=== PATIENT | male | born 1950 | race Caucasian/White ===

== ENCOUNTER → 2016-12-23 | Outpatient (CLI) | payer MEDICARE ==
[~2016-12-23] VITALS: Ht 182.9 cm; Wt 83.5 kg
[~2016-12-23] MED LIST: ALBUTEROL2.5 MG/3 M INH; ALDACTONE 25MG25 MG PO; ASPIR-LOW81 MG PO; ASPIRIN CHEWABL81 MG PO; ATIVAN0.5 MG PO; ATIVAN1 MG PO; CORDARONE 200M200 MG PO; COREG 3.125M3.125 MG PO; COUMADIN 1MG TAB1 MG PO; DEMADEX 20 MG T20 MG PO; EFFEXOR XR 150150 MG PO; ELIQUIS 5 MG TAB5 MG PO; FEOSOL325 MG PO; IMDUR ER TAB 6060 MG PO; K-DUR TAB 10 M10 MEQ PO; LASIX40 MG PO; LEVAQUIN500 MG PO; LIPITOR TAB 2020 MG PO; LIPITOR80 MG PO; LISINOPRIL2.5 MG PO; LOPRESSOR 50 MG50 MG PO; MEDI-PATCH WIT1 EACH TD; NITROSTAT0.4 MG PO; NITROSTAT0.4 MG SL; NORCO 5-325 TA1 EACH PO; PLAVIX 75 MG TA75 MG PO; PROAIR HFA8.5 GM INH; PROSCAR5 MG PO; PROTONIX40 MG PO; RANEXA500 MG PO; SENOKOT-S TABL1 EACH PO; SYMBICORT 160-1 INHA INH; SYMBICORT 16010.2 GM INH; TRAZODONE HCL50 MG PO; TYLENOL W/CODEIN1 E1 PO; VENTOLIN/PROVE0.5 ML INH; ZYLOPRIM 100 M100 MG PO
[2016-12-23 07:59] LABS: HEMOGLOBIN 10.9 gm/dl (14.0-17.5); RED BLOOD COUNT 3.91 M/UL (4.20-5.50); WHITE BLOOD COUNT 6.6 K/UL (4.5-11.0)
== END ==
LOC: OPSV2 07:04 → EDSTATUS 07:30
PROVIDERS: Internal Medicine Cardiovascular Disease
DX: I48.0 Paroxysmal atrial fibrillation (principal); I48.92 Unspecified atrial flutter; I13.0 Hypertensive heart and chronic kidney disease with heart failure and stage 1 through stage 4 chronic kidney disease, or unspecified chronic kidney disease; I50.22 Chronic systolic (congestive) heart failure; N18.9 Chronic kidney disease, unspecified; I25.5 Ischemic cardiomyopathy; I45.9 Conduction disorder, unspecified; F17.210 Nicotine dependence, cigarettes, uncomplicated; I25.119 Atherosclerotic heart disease of native coronary artery with unspecified angina pectoris; Z95.1 Presence of aortocoronary bypass graft; I25.2 Old myocardial infarction; Z79.899 Other long term (current) drug therapy; Z95.2 Presence of prosthetic heart valve; Z95.810 Presence of automatic (implantable) cardiac defibrillator; Z98.61 Coronary angioplasty status; I95.9 Hypotension, unspecified; I34.0 Nonrheumatic mitral (valve) insufficiency; E78.2 Mixed hyperlipidemia; I73.9 Peripheral vascular disease, unspecified; G47.30 Sleep apnea, unspecified; Z86.73 Personal history of transient ischemic attack (TIA), and cerebral infarction without residual deficits; I99.9 Unspecified disorder of circulatory system; Z79.82 Long term (current) use of aspirin; Z79.02 Long term (current) use of antithrombotics/antiplatelets; Z86.79 Personal history of other diseases of the circulatory system; Z86.39 Personal history of other endocrine, nutritional and metabolic disease; Z79.891 Long term (current) use of opiate analgesic
CPT/HCPCS: 80048; 85025; 93005; J1200; J2250; J2270

== ENCOUNTER → 2016-12-29 | Outpatient (CLI) | payer MEDICARE | LOC: HEART 5 09:08 | DX: R06.02 Shortness of breath (principal); Z87.891 Personal history of nicotine dependence; Z79.899 Other long term (current) drug therapy | CPT/HCPCS: 94060; 94729 ==

== ENCOUNTER → 2017-01-08 | Outpatient (CLI) | payer MEDICARE ==
[2017-01-08 12:06] LABS: HEMOGLOBIN 10.7 gm/dl (14.0-17.5); RED BLOOD COUNT 3.79 M/UL (4.20-5.50); WHITE BLOOD COUNT 5.7 K/UL (4.5-11.0)
== END ==
LOC: LAB 11:40
PROVIDERS: Internal Medicine Nephrology
DX: D50.9 Iron deficiency anemia, unspecified (principal); N18.3 Chronic kidney disease, stage 3 (moderate)
CPT/HCPCS: 36415; 80048; 82043; 82570; 82728; 83540; 83550; 85027

== ENCOUNTER 2017-02-17 02:04 | Inpatient (IN) | payer MEDICARE ==
[~2017-02-17] VITALS: Ht 182.9 cm; Wt 90.0 kg
[~2017-02-17 02:04] MED LIST changes: -TRAZODONE HCL50 MG PO
[2017-02-17 04:22] LABS: HEMOGLOBIN 9.9 gm/dl (14.0-17.5); RED BLOOD COUNT 3.56 M/UL (4.20-5.50)
[2017-02-17] MEDS ORDERED: TRAZODONE HCL50 MG PO (09:16)
[2017-02-18 06:28] LABS: HEMOGLOBIN 9.4 gm/dl (14.0-17.5); RED BLOOD COUNT 3.39 M/UL (4.20-5.50); WHITE BLOOD COUNT 5.5 K/UL (4.5-11.0)
== END 2017-02-18 18:30 | disposition home or self-care (01) | DRG 291 ==
LOC: ER1 02:04 → ZEROF 05:16 → M/S 08:30
PROVIDERS: Emergency Medicine; Physician Assistant Medical; ADMIT Internal Medicine
DX: I13.0 Hypertensive heart and chronic kidney disease with heart failure and stage 1 through stage 4 chronic kidney disease, or unspecified chronic kidney disease (principal); I50.23 Acute on chronic systolic (congestive) heart failure; J96.10 Chronic respiratory failure, unspecified whether with hypoxia or hypercapnia; N18.3 Chronic kidney disease, stage 3 (moderate); I25.5 Ischemic cardiomyopathy; I25.10 Atherosclerotic heart disease of native coronary artery without angina pectoris; I48.0 Paroxysmal atrial fibrillation; N40.0 Benign prostatic hyperplasia without lower urinary tract symptoms; D63.8 Anemia in other chronic diseases classified elsewhere; I73.9 Peripheral vascular disease, unspecified; E11.22 Type 2 diabetes mellitus with diabetic chronic kidney disease; J44.9 Chronic obstructive pulmonary disease, unspecified; K21.9 Gastro-esophageal reflux disease without esophagitis; F17.210 Nicotine dependence, cigarettes, uncomplicated; G47.33 Obstructive sleep apnea (adult) (pediatric); M10.9 Gout, unspecified; Z95.820 Peripheral vascular angioplasty status with implants and grafts; Z79.01 Long term (current) use of anticoagulants; Z95.1 Presence of aortocoronary bypass graft; Z95.2 Presence of prosthetic heart valve; Z95.810 Presence of automatic (implantable) cardiac defibrillator; Z86.73 Personal history of transient ischemic attack (TIA), and cerebral infarction without residual deficits; Z79.899 Other long term (current) drug therapy; Z79.82 Long term (current) use of aspirin; Z82.49 Family history of ischemic heart disease and other diseases of the circulatory system
CPT/HCPCS: 36415; 71010; 80048; 80053; 82550; 82553; 82962; 83605; 83735; 83874; 83880; 84439; 84443; 84484; 85025; 93005; 93971; 94640; 94660; 94664; 96374; 99285; J1940; J2550; J7050

== ENCOUNTER → 2017-02-24 | Outpatient (CLI) | payer MEDICARE ==
[~2017-02-24] MED LIST changes: +TRAZODONE HCL50 MG PO
== END ==
LOC: LAB 11:55
PROVIDERS: Internal Medicine Nephrology
DX: N18.3 Chronic kidney disease, stage 3 (moderate) (principal); D50.9 Iron deficiency anemia, unspecified
CPT/HCPCS: 36415; 80048

== ENCOUNTER 2017-03-06 08:40 | Emergency (ER) | payer MEDICARE ==
[2017-03-06 09:59] LABS: HEMOGLOBIN 9.9 gm/dl (14.0-17.5); RED BLOOD COUNT 3.53 M/UL (4.20-5.50)
== END 2017-03-06 16:15 ==
LOC: ER1 08:40
PROVIDERS: Emergency Medicine
DX: I50.9 Heart failure, unspecified (principal); Z88.5 Allergy status to narcotic agent; Z79.82 Long term (current) use of aspirin; Z79.01 Long term (current) use of anticoagulants; Z79.899 Other long term (current) drug therapy
CPT/HCPCS: 36415; 71010; 80053; 82550; 82553; 83874; 83880; 84484; 85025; 85610; 85730; 93005; 96374; 99285; J1940